=== PATIENT | female | born 1970 | race Caucasian/White ===

== ENCOUNTER 2017-05-13 12:36 | Day surgery (SDC) | payer OTHER ==
[~2017-05-13] VITALS: Ht 154.9 cm; Wt 90.0 kg
[2017-05-13] VITALS (11 sets, daily range): BP systolic 94–143; BP diastolic 54–81; PULSE 50–60; RESP 14–27; Ht 154.9 cm; Wt 90.0 kg
[~2017-05-13 12:36] MED LIST: CEFAZOLIN 1 GM INJ ONE; CLINDAMYCIN 600 MG/D5W (PMX) 50 ML IVPB SCH; SOD CHLORIDE 0.9% 1,000 ML IV SCH
[2017-05-13] MEDS ORDERED: CHOL100062 PO (13:15)
[2017-05-13] MEDS ORDERED: MIDAZOLAM 1 MG/ML 2 ML INJ ONE (14:44)
[2017-05-13] MEDS ORDERED: PROPOFOL 20 ML ONE (14:44)
[2017-05-13] MEDS ORDERED: PHENYLephrine (100 MCG/ML) 5ML SYG ONE (14:44)
[2017-05-13] MEDS ORDERED: FENTAnyl 50 MCG/ML VIAL ONE (14:44)
[2017-05-13] MEDS ORDERED: LIDOCAINE 2% (SDV) 5 ML INJ ONE (14:44)
[2017-05-13] MEDS ORDERED: BUPIVACAINE 0.25% (MPF) 30 ML INJ ONE (14:49)
[2017-05-13] MEDS ORDERED: DEXAMETHASONE 4 MG/ML 1 ML INJ ONE (14:52)
[2017-05-13] MEDS ORDERED: ONDANSETRON 4 MG INJ ONE (14:52)
[2017-05-13] MEDS ORDERED: LABETALOL HCL 20MG INJ ONE (15:26)
--- NOTE | 2017-05-13 16:06 | OPR ---
Date/Time of Note Date/Time of Note DATE: 05/13/17 TIME: 16:02 Operative Report Procedure Date: May 13, 2017 Preoperative Diagnosis right neck mass right scalp mass right wrist ventral ganglion cyst Postoperative Diagnosis same Operation/Procedure Performed 1. right neck mass excision 6 cm incision 6 cm mass 2. right scalp mass 3 cm incision 2 cm mass 3. right wrist ventral ganglion cyst 2 cm incision 1 cm mass 4. localized adjacent tissue transfer with the use of skin flaps 22 sq cm defect 5. therapeutic injection of subcutaneous local anesthesia Surgeon see signature line Manager Hardware none Anesthesia Type: general Estimated Blood Loss: 0 - 10 ml's Transfusion none Specimen right neck mass right scalp mass right wrist ventral ganglion cyst Grafts/Implants none Complications none Pt Condition Post Procedure: stable Indications This is a 46-year-old female with right neck mass right scalp mass in the right ventricle wrist ganglion cyst. She requests surgical excision. Risks alternatives benefits and percent were discussed with the patient. Patient's best understanding consents to the operation. Procedure Description Patient taken to the OR and prepped and draped in usual sterile fashion. Cervical timeout was performed. IV antibiotics given. Transverse incision was made over the right scalp mass. Dissection cautery was carried onto the mass and circumferentially is excised. There is good hemostasis. Due to tissue defect localized adjacent tissue transfer with these of skin flaps were performed. Multilayer closure with interrupted 2-0 Vicryl. There appears to contains Marcaine is injected throughout the incision dry dressings were applied. Attention was then paid to the right neck mass. Transverse incision was made with a 15 blade. Dissection cautery was carried onto the mass. The tumor appeared to be intramuscular. A piece of the muscle split and the mass was grasped with Allis forceps. The mass was then resected using cautery. There is good hemostasis. Due to the tissue defect localized adjacent tissue transfer with his skin flaps was performed multilayer closure with interrupted 3 -0 Vicryl and skin elva. Therapeutic subcutaneous local anesthesia was injected throughout the incision site. Attention was then paid to the right wrist ventral ganglion cyst. Transverse incision is made with a 15 blade. Dissection cautery was carried onto the cyst. The cyst then bluntly dissected out with hemostat. The base of the cyst and the cyst is excised. Similar contents were suctioned out. There is good hemostasis. Due to tissue defect localized adjacent tissue transfer with these of skin flaps were performed. Multilayer closure with interrupted 3-0 Vicryl interrupted 4-0 Monocryl. There appears to contains local anesthesia was injected. Dermabond was applied. Dry dressings were also applied to the other surgical sites. Get ELIAS May 13, 2017 16:05
[2017-05-13] MEDS ORDERED: HYDROCODONE/APAP (5/325) TAB PO ONE (16:30)
== END 2017-05-13 18:28 | disposition home or self-care (01) ==
LOC: SDS 12:36
PROVIDERS: ATTEND Surgery
DX: D17.0 Benign lipomatous neoplasm of skin and subcutaneous tissue of head, face and neck (principal); L72.11 Pilar cyst; M67.431 Ganglion, right wrist; Z88.0 Allergy status to penicillin
CPT/HCPCS: 84703; 88304; 88307; J0690; J1100; J2250; J2370; J2405; J3010

== ENCOUNTER 2018-12-27 06:50 | Day surgery (SDC) | payer OTHER ==
[~2018-12-27] VITALS: Ht 154.9 cm; Wt 103.5 kg
[2018-12-27] VITALS (8 sets, daily range): BP systolic 103–145; BP diastolic 58–88; PULSE 73–82; RESP 15–16; Ht 154.9 cm; Wt 103.5 kg
[~2018-12-27 06:50] MED LIST changes: -CEFAZOLIN 1 GM INJ ONE; +CHOL100062 PO; -CLINDAMYCIN 600 MG/D5W (PMX) 50 ML IVPB SCH; -SOD CHLORIDE 0.9% 1,000 ML IV SCH
[2018-12-27] MEDS ORDERED: CEFAZOLIN 2 GM/50 ML (PMX) 50 ML IVPB SCH (07:00)
[2018-12-27] MEDS ORDERED: SOD CHLORIDE 0.9% 1,000 ML IV SCH (07:00)
--- NOTE | 2018-12-27 08:24 | PREAC ---
Date/Time of Note Date/Time of Note DATE: 12/27/18 TIME: 08:20 Anesthesia Eval and Record Evaluation Time Pre-Procedure Interview DATE: 12/27/18 TIME: 08:20 Age 48 Sex female NPO: 8 hrs Preoperative diagnosis R wrist mass Planned procedure R wrist mass excision Past Medical History Past Medical History: Includes GI: Morbid obesity Surgery & Anesthesia Issues No known issue (tubal ligation; multiple mass excision (back, neck, axilla, R hand), csection x2) Meds Anticoagulation: No Beta Leah within 24 hr: No Reason Beta Leah not given: Pt. not on B-Leah Discontinued Reported Medications Cholecalciferol* (Vitamin D3*) 1,000 Unit Tablet, 1000 UNIT PO DAILY, TAB 05/13/17 Current Medications Sodium Chloride 1,000 ml @ 75 mls/hr [id number] IV ; Start 12/27/18 at 07:00 Miscellaneous Information 1 ea NOTE XX ; Start 12/27/18 at 07:00 Meds reviewed: Yes Allergies Coded Allergies: Penicillins (Unverified Allergy, Unknown, 12/27/18) Allergies Reviewed: Yes Labs/Studies Labs Reviewed: Reviewed by anesthesiologist Result Diagram: 12/27/18 0748 Laboratory Tests 12/27/18 07:48 test: Negative Pre-procedure Exam Last vitals Vital Signs Date Temp Pulse Resp B/P (MAP) Pulse Ox O2 O2 Flow FiO2 Time Delivery Rate 12/27/18 96.9 75 16 134/88 99 Room Air 07:44 (103) Airway: Adequate mouth opening, Adequate thyromental dist Mallampati: Mallampati II Teeth: Abnormal (missing lower molars R/L) Lung: Normal Heart: Normal ASA Physical Status ASA physical status: 3 Emergency: None Planned Anesthetic General/MAC: ETT, MAC (to the discretion of the anesthesiologist) Pre-operative Attestations Prior to commencing anesthesia and surgery, the patient was re-evaluated, there was verification of: *The patient's identity *The results of appropriate recent lab work and preoperative vital signs *The above evaluation not changing prior to induction *Anesthetic plan, risk benefits, alternative and complications discussed with patient/family; questions answered; patient/family understands, accepts and wishes to proceed. MARK CHATMAN Dec 27, 2018 08:24
[2018-12-27] MEDS ORDERED: MIDAZOLAM 1 MG/ML 2 ML INJ ONE (08:59)
[2018-12-27] MEDS ORDERED: ONDANSETRON 4 MG INJ ONE (08:59)
[2018-12-27] MEDS ORDERED: KETOROLAC 30 MG INJ ONE (08:59)
[2018-12-27] MEDS ORDERED: IPRATROPIUM (NEB) 0.5 MG/2.5 ML AMP HHN PRN (09:00)
[2018-12-27] MEDS ORDERED: FENTAnyl 50 MCG/ML VIAL IV PRN ×3 (09:00)
[2018-12-27] MEDS ORDERED: TRIMETHOBENZAMIDE 100 MG/ML VIAL IM PRN (09:00)
[2018-12-27] MEDS ORDERED: LABETALOL HCL 20MG INJ IV PRN (09:00)
[2018-12-27] MEDS ORDERED: DIPHENHYDRAMINE 50 MG INJ IV PRN (09:00)
[2018-12-27] MEDS ORDERED: ALBUTEROL 0.083% (NEB) 2.5 MG/3 ML AMP HHN PRN (09:00)
[2018-12-27] MEDS ORDERED: ONDANSETRON 4 MG INJ IV PRN (09:00)
[2018-12-27] MEDS ORDERED: HYDROmorphONE 1 MG/5 ML IV SYRINGE IV PRN ×3 (09:00)
[2018-12-27] MEDS ORDERED: EPHEDrine 25 MG/5 ML SYG IV PRN (09:00)
[2018-12-27] MEDS ORDERED: MEPERIDINE 25 MG INJ IV PRN (09:00)
[2018-12-27] MEDS ORDERED: MIDAZOLAM 1 MG/ML 2 ML INJ IV PRN (09:00)
[2018-12-27] MEDS ORDERED: OXYCODONE/ACETAMINOPHEN (5/325) TAB PO PRN ×2 (09:00)
[2018-12-27] MEDS ORDERED: hydrALAzine 20 MG INJ IV PRN (09:00)
[2018-12-27] MEDS ORDERED: BUPIVACAINE 0.5% (SDV) 30 ML INJ ONE (09:02)
[2018-12-27] MEDS ORDERED: LIDOCAINE 2% (MDV) 20 ML INJ ONE (09:02)
[2018-12-27] MEDS ORDERED: FENTAnyl 50 MCG/ML VIAL ONE (09:13)
--- NOTE | 2018-12-27 09:27 | OPR ---
Date/Time of Note Date/Time of Note DATE: 12/27/18 TIME: 09:25 Operative Report Procedure Date: Dec 27, 2018 Preoperative Diagnosis right wrist mass Postoperative Diagnosis same Operation/Procedure Performed 1. excision of right wrist mass 3 cm mass 3 cm incision 2. localized adjacent tissue transfer with the use of skin flaps 6 sq cm defect of right wrist 3. therapeutic injection of subcutaneous local anesthesia Surgeon see signature line Stock Driver none Anesthesia Type: other Estimated Blood Loss: 0 - 10 ml's Transfusion none Specimen right wrist mass Grafts/Implants none Complications none Pt Condition Post Procedure: stable Indications This is a 48-year-old female with the anterior right wrist mass that is painful. She required surgical excision. Risks alternatives benefits and personal were discussed the patient. Patient expressed understanding and consents to the operation. Procedure Description Patient is taken to the OR and prepped and draped in usual sterile fashion. Surgical time was performed. IV antibiotics were given. Therapeutic subcutaneous local anesthesia was injected all around the right wrist anterior mass. 15 blade was used to make elliptical incision around the mass. Dissection with cautery skin onto the mass and the mass was circumferentially excised. Good hemostasis status. Due to tissue defect localization to his transfer with use of skin flaps was performed. Multilayer closed with interrupted 3-0 Vicryl and skin elav. Dry dressings were applied. Get ELIAS Dec 27, 2018 09:27
[2018-12-27] MEDS ORDERED: traMADol 50 MG TAB PO ONE (09:30)
--- NOTE | 2018-12-27 10:04 | PAC ---
Date/Time of Note Date/Time of Note DATE: 12/27/18 TIME: 10:04 Post-Anesthesia Notes Post-Anesthesia Note Last documented vital signs Vital Signs Date Temp Pulse Resp B/P (MAP) Pulse Ox O2 O2 Flow FiO2 Time Delivery Rate 12/27/18 96.9 75 16 134/88 99 Room Air 07:44 (103) Activity: WNL Respiratory function: WNL Cardiovascular function: WNL Mental status: Baseline Pain reasonably controlled: Yes Hydration appropriate: Yes Nausea/Vomiting absent: Yes Calvin Stahl M.D. Dec 27, 2018 10:04
== END 2018-12-27 19:00 | disposition home or self-care (01) ==
LOC: SDS 06:50
PROVIDERS: ATTEND Surgery
DX: M67.431 Ganglion, right wrist (principal); L98.8 Other specified disorders of the skin and subcutaneous tissue
CPT/HCPCS: 14020; 80053; 85025; 85610; 85730; 88307; J1885; J2250; J2405; J3010; Z7512; Z7610